=== PATIENT | female | born 1975 ===

== ENCOUNTER 2018-03-14 16:15 | Emergency (ER) | payer OTHER, MEDICAID ==
[2018-03-14 16:46] VITALS: RESP 18; TEMP 98.4
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
--- NOTE | 2018-03-14 18:37 | CT ---
Date of service: 03/14/2018 PROCEDURE: CT HEAD WITHOUT CONTRAST. HISTORY: r/o bleed COMPARISON: None available. TECHNIQUE: Axial computed tomography images were obtained through the head/brain without intravenous contrast. Radiation dose: Total exam DLP = 769.3 mGy-cm. This CT exam was performed using one or more of the following dose reduction techniques: Automated exposure control, adjustment of the mA and/or kV according to patient size, and/or use of iterative reconstruction technique. FINDINGS: HEMORRHAGE: No intracranial hemorrhage. BRAIN: No mass effect or edema. The beard-white matter differentiation appears intact. Please note that MRI with diffusion imaging is more sensitive in the detection of acute ischemic event. VENTRICLES: No hydrocephalus. CALVARIUM: Unremarkable. PARANASAL SINUSES: Unremarkable as visualized. No significant inflammatory changes. MASTOID AIR CELLS: Unremarkable as visualized. No inflammatory changes. OTHER FINDINGS: None. IMPRESSION: No acute intracranial pathology identified.
[2018-03-14] MEDS ORDERED: Naproxen 500 MG TAB PO STA (19:10)
[2018-03-14] MEDS ORDERED: Naproxen 500 MG TAB PO ONE (19:15)
[2018-03-14 19:48] VITALS: BP 109/65; PULSE 85; O2SAT 97
== END 2018-03-14 19:52 | disposition home or self-care (01) ==
LOC: H.ER 16:15
DX: S09.90XA Unspecified injury of head, initial encounter (principal); W22.8XXA Striking against or struck by other objects, initial encounter; Y99.0 Civilian activity done for income or pay